=== PATIENT | female | born 2000 | race Hispanic/Latino ===

== ENCOUNTER 2023-10-11 12:27 | Emergency (ER) | payer SELFPAY ==
[~2023-10-11] VITALS: Ht 157.5 cm; Wt 80.7 kg
[2023-10-11] MEDS ORDERED: CYCLOBENZAPRINE5 MG PO (13:23)
[2023-10-11] MEDS: KETOROLAC TROMETHAMINE 30 MG/ML VIAL IM STA (13:33)
[2023-10-11] MEDS: Morphine 4mg INJECTION 4 MG/ML INJ IM ONE (13:33)
[2023-10-11 14:20] VITALS: PULSE 58; RESP 14; TEMP 98.7; O2SAT 98
== END 2023-10-11 14:20 | disposition home or self-care (01) ==
LOC: FSED 12:36
DX: M54.16 Radiculopathy, lumbar region (principal); R10.11 Right upper quadrant pain; R51.9 Headache, unspecified
CPT/HCPCS: 81003; 81025; 96372; 99283; J1885; J2270